=== PATIENT | male | born 1975 | race Caucasian/White ===

== ENCOUNTER 2016-10-20 18:45 | Emergency (ER) | payer OTHER ==
[2016-10-20 19:19] LABS: ABSOLUTE NEUTROPHIL COUNT 5.9 K/mm3 (1.8-7.7); BASO # 0.1 K/mm3 (0.0-0.2); BASO % 0.6 % (0.2-1.0); EOS # 0.3 (0.0-0.5); EOS % 2.9 % (0.9-2.9); HEMATOCRIT 43.5 % (32.0-52.0); HEMOGLOBIN 15.2 gm/l (14.0-18.0); IMM NEUT% 0.3 % (0-1); LYMPH # 3.6 (1.0-4.8); LYMPH % 33.6 % (15-45); MEAN CELL VOLUME 83.3 fl (80.0-94.0); MEAN CORPUSCULAR HEMOGLOBIN 29.1 pg (27.0-31.0); MEAN CORPUSCULAR HGB CONC 34.9 g/dl (33.0-37.0); MEAN PLATELET VOLUME 10.3 fl (7.4-10.4); MONO # 0.8 (0.0-0.8); MONO % 7.6 % (4-12); PLATELET COUNT 321 K/mm3 (130-400)
[2016-10-20 19:31] LABS: ALB/GLOB RATIO 1.3 (>1.0); ALBUMIN 4.2 gm/dL (3.5-5.7); CALCIUM 9.3 mg/dL (8.6-10.3)
[2016-10-20] MEDS ORDERED: ASPIRIN CHEWTAB 81 MG TABLET ONE (19:37)
--- NOTE | 2016-10-21 07:51 | RAD ---
CHEST 2 VIEWS HISTORY: Chest pain. Frontal and lateral chest radiographs dated 10/20/2016. COMPARISON: None. FINDINGS: FOCAL AIRSPACE OPACITY: No gross airspace consolidation. PLEURAL EFFUSION: None. CARDIOMEDIASTINAL SILHOUETTE: Nonenlarged. PNEUMOTHORAX: None identified. OSSEOUS STRUCTURES: No grossly destructive lesions. IMPRESSION: No acute cardiopulmonary process noted.
== END 2016-10-20 22:40 | disposition home or self-care (01) ==
LOC: ED 18:45
DX: R07.9 Chest pain, unspecified (principal); R73.03 Prediabetes; E66.9 Obesity, unspecified; R60.0 Localized edema; Z68.43 Body mass index [BMI] 50.0-59.9, adult
CPT/HCPCS: 83690; 85025; 80053; 84484 ×2; 71020; 99284 ×2; A9270